=== PATIENT | male | born 1940 | race Caucasian/White ===

== ENCOUNTER 2016-06-19 12:07 | Inpatient (IN) | payer SELFPAY ==
[2016-06-19] VITALS (12 sets, daily range): BP systolic 119–145; BP diastolic 71–91; PULSE 64–84; RESP 16–18; TEMP 97.2–98.2; O2SAT 95–99
[~2016-06-19] VITALS: Ht 180.3 cm; Wt 89.9 kg
[2016-06-19] MEDS ORDERED: NITROGLYCERIN 0.4 MG SL 25 TABS/BTL SL STA (12:19)
[2016-06-19] MEDS ORDERED: SODIUM CHLOR 0.9% 1000 ML INJ 1,000 ML IV ONE (12:19)
[2016-06-19] MEDS ORDERED: HEPARIN SODIUM - IV 10,000 UNITS/10 ML VIAL IV STA (12:19)
--- NOTE | 2016-06-19 12:26 | PD ---
HPI Chief Complaint: Cardiac Complaint Time Seen by Provider: 12:17 Travel History International Travel<30 days: No Contact w/Intl Traveler<30days: No Traveled to known affect area: No History of Present Illness HPI 76yo M with PMH of CAD s/p bypass 20 years ago presents to the ED with c/o chest pain since 11:15am today. Pt was about to play golf when he started having left sided chest pain that radiates down left arm. +Nausea. Denies any sob, diaphoresis, vomiting, fever, cough, abdominal pain, focal weakness or numbness. Pt is from [place] and just arrived yesterday. Pt given aspirin 162mg and sublingual nitro by EVAC which helped a little. Still currently having chest pain. STEMI alert called by EVAC. [facility] Past Medical History Cardiac Catheterization: Yes Cardiovascular Problems: Yes High Cholesterol: Yes Hypertension: Yes Past Surgical History Coronary Artery Bypass Graft: Yes Other Surgery: Yes (HERNIA REPAIR) Social History Alcohol Use: No Tobacco Use: No Substance Use: No Allergies-Medications (Allergen,Severity, Reaction): Coded Allergies: No Known Allergies (Unverified , 06/19/16) Reported Meds & Prescriptions Reported Meds & Active Scripts Active Reported Vitamin D-3 (Cholecalciferol) 1,000 Unit Tab 1,000 Units PO DAILY Vitamin B-12 (Cyanocobalamin) 1,000 Mcg Tab 1,000 Mcg PO DAILY Valsartan 80 Mg Tab 80 Mg PO DAILY Lipitor (Atorvastatin Calcium) 40 Mg Tab 40 Mg PO HS Aspirin 81 Mg Chew 81 Mg CHEW DAILY Norvasc (Amlodipine Besylate) 5 Mg Tab 5 Mg PO DAILY Review of Systems Except as stated in HPI: all other systems reviewed are Neg Physical Exam Narrative GENERAL: 76yo M in moderate distress. SKIN: Focused skin assessment warm/dry. HEAD: Atraumatic. Normocephalic. EYES: Pupils equal and round. No scleral icterus. No injection or drainage. ENT: No nasal bleeding or discharge. Mucous membranes pink and moist. NECK: Trachea midline. No JVD. CARDIOVASCULAR: Regular rate and rhythm. No murmur appreciated. RESPIRATORY: No accessory muscle use. Clear to auscultation. Breath sounds equal bilaterally. GASTROINTESTINAL: Abdomen soft, non-tender, nondistended. No rebound tenderness or guarding. MUSCULOSKELETAL: No obvious deformities. No clubbing. No cyanosis. No edema. NEUROLOGICAL: Awake and alert. No obvious cranial nerve deficits. Motor grossly within normal limits. Normal speech. PSYCHIATRIC: Appropriate mood and affect; insight and judgment normal. Data Data Last Documented VS Vital Signs Date Time Temp Pulse Resp B/P Pulse Ox O2 Delivery O2 Flow Rate FiO2 06/19/16 12:18 99 2.00 06/19/16 12:18 Nasal Cannula 06/19/16 12:10 97.2 64 16 145/91 Orders Troponin I (06/19/16 12:19) Ckmb (Isoenzyme) Profile (06/19/16 12:19) Complete Blood Count With Diff (06/19/16 12:19) I-Stat Profile (06/19/16 12:19) I-Stat Creatinine (06/19/16 12:19) Calcium (06/19/16 12:19) Magnesium (Mg) (06/19/16 12:19) Prothrombin Time / Inr (Pt) (06/19/16 12:19) Act Partial Throm Time (Ptt) (06/19/16 12:19) Electrocardiogram (06/19/16 12:19) Oxygen Administration (06/19/16 12:19) Iv Access Insert/Monitor (06/19/16 12:19) Oximetry (06/19/16 12:19) Sodium Chlor 0.9% 1000 Ml Inj (Ns 1000 M (06/19/16 12:19) Sodium Chloride 0.9% Flush (Ns Flush) (06/19/16 12:30) Nitroglycerin Sl (Nitrostat Sl) (06/19/16 12:19) Heparin Inj (Heparin Inj) (06/19/16 12:19) Chest, Single Ap (06/19/16 ) Fentanyl Inj (Fentanyl Inj) (06/19/16 12:36) Midazolam Inj (Versed Inj) (06/19/16 12:36) Admit Order (Ed Use Only) (06/19/16 13:05) CKMB (06/19/16 12:15) CKMB% (06/19/16 12:15) Labs Laboratory Tests Test 06/19/16 12:15 White Blood Count 7.6 TH/MM3 Red Blood Count 6.27 MIL/MM3 Hemoglobin 15.1 GM/DL Bedside Hemoglobin 16.3 G/DL Hematocrit 47.0 % Bedside Hematocrit 48.0 % Mean Corpuscular Volume 75.0 FL Mean Corpuscular Hemoglobin 24.1 PG Mean Corpuscular Hemoglobin 32.2 % Concent Red Cell Distribution Width 15.9 % Platelet Count 221 TH/MM3 Mean Platelet Volume 8.9 FL Neutrophils (%) (Auto) 58.8 % Lymphocytes (%) (Auto) 28.3 % Monocytes (%) (Auto) 10.3 % Eosinophils (%) (Auto) 2.0 % Basophils (%) (Auto) 0.6 % Neutrophils # (Auto) 4.4 TH/MM3 Lymphocytes # (Auto) 2.1 TH/MM3 Monocytes # (Auto) 0.8 TH/MM3 Eosinophils # (Auto) 0.2 TH/MM3 Basophils # (Auto) 0.0 TH/MM3 CBC Comment AUTO DIFF Differential Comment AUTO DIFF CONFIRMED Platelet Estimate NORMAL Platelet Morphology Comment NORMAL Ovalocytes 2+ Prothrombin Time 10.8 SEC Prothromb Time International 1.0 RATIO Ratio Activated Partial 22.6 SEC Thromboplast Time Bedside Sodium 142 MMOL/L Bedside Potassium 5.1 MMOL/L Bedside Chloride 107 MMOL/L Bedside Blood Urea Nitrogen 29 MG/DL Bedside Creatinine 1.2 MG/DL Bedside Glucose 103 MG/DL Calcium Level 9.3 MG/DL Magnesium Level 2.3 MG/DL Total Creatine Kinase 172 U/L Creatine Kinase MB 1.4 NG/ML Troponin I LESS THAN 0.02 NG/ML MDM Medical Decision Making Medical Screen Exam Complete: Yes Emergency Medical Condition: Yes Differential Diagnosis STEMI Narrative Course 76yo M with typical chest pain here as stemi alert. Repeat EKG in the ED showed St segment elevation in II, III, aVF and ST depression in I, aVL, V2. Since ST segment in III is higher than II, posterior EKG obtained. V4 and V5 has 1mm ST segment elevation in posterior EKG. Discussed with Dr. Richmond and accepted to labor and delivery registered nurse. Pt was given heparin 5000mg IV in the ED. Pt has already been given aspirin and sublingual nitro x3 by EVAC. I accompanied pt to the labor and delivery registered nurse on electronic device monitor and was with the patient until Dr. Richmond arrived in the labor and delivery registered nurse. Critical Care Narrative Aggregate critical care time was 35 minutes. Time to perform other separately billable procedures was not included in the critical care time. My time did not include minutes spent treating any other patients simultaneously or on activities that did not directly contribute to the patient's treatment. The services I provided to this patient were to treat and/or prevent clinically significant deterioration that could result in: cardiovascular collapse or . I provided critical care services requiring my management, as noted below: Chart data review, documentation time, medication orders and management, vital sign assessments/reviewing monitor data, ordering and reviewing lab tests, ordering and interpreting/reviewing x-rays and diagnostic studies, care of the patient and discussion of the patient with the admitting physicians. Diagnosis Primary Impression: STEMI (ST elevation myocardial infarction) Qualified Code: I21.19 - ST elevation myocardial infarction (STEMI) involving other coronary artery of inferior wall Admitting Information Admitting Physician Requests: Cheryl Purvis DO Jun 19, 2016 12:26
[2016-06-19] MEDS ORDERED: SODIUM CHLORIDE 0.9% FLUSH 10 ML FLUSH IVF PRN (12:30)
--- NOTE | 2016-06-19 12:31 | RADRPT ---
EXAM DATE/TIME: 06/19/2016 12:16 [facility] COMPARISON: No previous studies available for comparison. INDICATIONS : Chest pain, stemi alert. MEDICAL HISTORY : None. SURGICAL HISTORY : CABG. ENCOUNTER: Initial ACUITY: 1 day PAIN SCORE: 10/10 LOCATION: Left upper chest FINDINGS: Mild motion degradation in the left lower chest. A single view of the chest demonstrates the lungs t o be symmetrically aerated without evidence of mass, infiltrate or effusion. The cardiomediastinal c ontours are unremarkable. Both hemidiaphragms are well delineated. Osseous structures are intact. Prior median sternotomy with intact sternal wire sutures. CONCLUSION: No definite infiltrate seen. Candido Zuleta MD on June 19, 2016 at 12:28 Board Certified Radiologist. This report was verified electronically.
[2016-06-19] MEDS ORDERED: MIDAZOLAM HCL 5 MG/5 ML VIAL ONE (12:36)
[2016-06-19 12:42] LABS: AUTOMATED NEUTROPHIL # 4.4 TH/MM3 (1.8-7.7); BASOPHIL % 0.6 % (0.0-2.0); EOSINOPHIL # 0.2 TH/MM3 (0-0.4); LYMPH % 28.3 % (9.0-44.0); LYMPHOCYTE # 2.1 TH/MM3 (1.0-4.8); MEAN CORPUSCULAR HEMOGLOBIN 24.1 PG (27.0-34.0); MEAN CORPUSCULAR HGB CONC 32.2 % (32.0-36.0); MONO % 10.3 % (0.0-8.0); NEUT % 58.8 % (16.0-70.0); PLATELET COUNT 221 TH/MM3 (150-450); RED BLOOD COUNT 6.27 MIL/MM3 (4.50-5.90); RED CELL DISTRIBUTION WIDTH 15.9 % (11.6-17.2); WHITE BLOOD COUNT 7.6 TH/MM3 (4.0-11.0)
[2016-06-19 12:43] LABS: HEMO FLAGS AUTO DIFF
[2016-06-19 12:46] LABS: I-STAT POTASSIUM 5.1 MMOL/L (3.5-4.9); I-STAT SODIUM 142 MMOL/L (138-146)
[2016-06-19 12:50] LABS: APTT (PATIENT) 22.6 SEC (24.3-30.1); PROTHROMBIN TIME - PATIENT 10.8 SEC (9.8-11.6)
[2016-06-19] MEDS ORDERED: MIDAZOLAM HCL 2 MG/2 ML VIAL IV ONE ×3 (12:50→13:48)
[2016-06-19] MEDS ORDERED: HEPARIN SODIUM - IV 10,000 UNITS/10 ML VIAL ONE (13:00)
[2016-06-19] MEDS ORDERED: HEPARIN SODIUM - IV 10,000 UNITS/10 ML VIAL IV ONE ×2 (13:05→13:15)
[2016-06-19 13:10] LABS: CREATINE KINASE 172 U/L (39-308); MAGNESIUM 2.3 MG/DL (1.5-2.5)
[2016-06-19 13:17] LABS: OVALOCYTES 2+ (NORMAL)
[2016-06-19 13:19] LABS: PLATELET ESTIMATE SMEAR NORMAL (NORMAL); PLATELET MORPHOLOGY NORMAL (NORMAL); SCAN/DIFF AUTO DIFF CONFIRMED
[2016-06-19 13:23] LABS: CKMB 1.4 NG/ML (0.5-3.6)
[2016-06-19] MEDS ORDERED: TIROFIBAN INFUSION INJ 250 ML IV ONE (13:26)
[2016-06-19] MEDS ORDERED: PRASUGREL 10 MG TAB ONE (13:29)
[2016-06-19] MEDS ORDERED: PRASUGREL 10 MG TAB PO ONE (13:40)
[2016-06-19] MEDS ORDERED: ASPIRIN 81 MG CHEW TAB PO ONE (13:58)
[2016-06-19] MEDS ORDERED: ASPIRIN 81 MG CHEW TAB ONE (13:58)
[2016-06-19] MEDS ORDERED: IOHEXOL 350 MG/ML 100 ML BTL (for Cath Lab) OTHER ONE (14:48)
[2016-06-19] MEDS ORDERED: LIPI40TA PO (14:56)
[2016-06-19] MEDS ORDERED: AMLO5 PO (14:56)
[2016-06-19] MEDS ORDERED: VALS1TAB64 PO (14:56)
[2016-06-19] MEDS ORDERED: ASPI81CH CHEW (14:56)
[2016-06-19] MEDS ORDERED: VITA10002 PO (14:56)
[2016-06-19] MEDS ORDERED: VITA10003 PO (14:56)
[2016-06-19] MEDS ORDERED: SODIUM CHLOR 0.9% 1000 ML INJ 1,000 ML IV SCH (16:02)
[2016-06-19] MEDS ORDERED: TEMAZEPAM 15 MG CAP PO PRN (16:15)
[2016-06-19] MEDS ORDERED: ACETAMINOPHEN 325 MG TAB PO PRN (16:15)
--- NOTE | 2016-06-19 16:55 | MB ---
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 He was about to play golf this morning and started having left-sided chest pain radiating down the left arm associated with nausea. The patient is here on vacation from [place]. He was diagnosed with acute inferior myocardial infarction and was referred for emergent cardiac catheterization. He has ongoing 810 substernal chest discomfort. PAST MEDICAL HISTORY Positive for - 1. Hypertension. 2. Dyslipidemia. 3. Four-vessel bypass 20 years ago. 4. No history of diabetes mellitus or CVA. MEDICATIONS See chart. ALLERGIES NONE. SOCIAL HISTORY The patient does not smoke. He does not drink alcohol. FAMILY HISTORY Negative for heart disease. REVIEW OF SYSTEMS Otherwise negative. PHYSICAL EXAMINATION VITAL SIGNS: Blood pressure 145/91, pulse 64 and regular. HEAD, EYES, EARS, NOSE, AND THROAT: Negative. NECK: 2+ carotid upstrokes. No bruits. LUNGS: Clear. HEART: Regular with no murmur, gallop or rub. ABDOMEN: Soft. No bruits. EXTREMITIES: Without edema. 2+ positive pulses. NEUROLOGIC: Exam is grossly nonfocal. EKG was reviewed and showed atrial fibrillation, right axis, inferior ST elevations with anterolateral reciprocal ST depressions. LABORATORY DATA Hemoglobin 15.1, potassium 5.1, creatinine 1.2, CK 172, troponin less than 0.02. DIAGNOSES 1. Acute inferior wall myocardial infarction. 2. Coronary artery disease. 3. Four-vessel coronary artery bypass. 4. Hypertension. 5. Dyslipidemia. DISPOSITION Mr. Gordon will undergo emergent cardiac catheterization and coronary intervention if necessary. He understands the risks and benefits and wishes to proceed. MD BING Hicks/MARK /2:08 PM /4:36 PM MTDWilber
[2016-06-19] MEDS ORDERED: ATORVASTATIN 10 MG TAB PO SCH (21:00)
[2016-06-19] MEDS: CARVEDILOL 3.125 MG TAB PO SCH (21:26)
[2016-06-20] VITALS (15 sets, daily range): BP systolic 134–145; BP diastolic 77–83; PULSE 60–75; RESP 16–18; TEMP 97.9–98.5; O2SAT 97–98
[2016-06-20] MEDS: TIROFIBAN INFUSION 12.5 MG/NS 250 ML IV SCH ×2 (02:15→17:41)
[2016-06-20 07:04] LABS: AUTOMATED NEUTROPHIL # 8.8 TH/MM3 (1.8-7.7); BASOPHIL # 0.1 TH/MM3 (0-0.2); BASOPHIL % 0.5 % (0.0-2.0); EOSINOPHIL # 0.1 TH/MM3 (0-0.4); HEMATOCRIT 42.1 % (39.0-51.0); LYMPH % 11.7 % (9.0-44.0); LYMPHOCYTE # 1.3 TH/MM3 (1.0-4.8); MEAN CELL VOLUME 76.1 FL (80.0-100.0); MEAN CORPUSCULAR HEMOGLOBIN 24.3 PG (27.0-34.0); MEAN CORPUSCULAR HGB CONC 31.9 % (32.0-36.0); MONO % 9.8 % (0.0-8.0); PLATELET COUNT 247 TH/MM3 (150-450); RED BLOOD COUNT 5.54 MIL/MM3 (4.50-5.90); RED CELL DISTRIBUTION WIDTH 15.9 % (11.6-17.2); WHITE BLOOD COUNT 11.4 TH/MM3 (4.0-11.0)
[2016-06-20 07:10] LABS: HEMO FLAGS AUTO DIFF
[2016-06-20 07:29] LABS: BICARBONATE 24.2 MEQ/L (21.0-32.0); HDL CHOLESTEROL 32.9 MG/DL (40.0-60.0); POTASSIUM 3.6 MEQ/L (3.5-5.1)
[2016-06-20 07:43] LABS: CKMB 183.2 NG/ML (0.5-3.6)
[2016-06-20 07:53] LABS: KERATOCYTES OCC (NORMAL); OVALOCYTES 2+ (NORMAL); PLATELET ESTIMATE SMEAR NORMAL (NORMAL); PLATELET MORPHOLOGY NORMAL (NORMAL); SCAN/DIFF AUTO DIFF CONFIRMED
[2016-06-20] MEDS: CARVEDILOL 3.125 MG TAB PO SCH (08:03)
[2016-06-20] MEDS ORDERED: PRASUGREL 10 MG TAB PO SCH (09:00)
[2016-06-20] MEDS ORDERED: VALSARTAN 80 MG TAB PO SCH (09:00)
[2016-06-20] MEDS ORDERED: ASPIRIN 81 MG CHEW TAB CHEW SCH (09:00)
--- NOTE | 2016-06-20 13:57 | EKG ---
Date Performed: 06/19/2016 Time Performed: 12:17:12 PTAGE: 76 years EKG: ATRIAL FIBRILLATION WITH ABERRANT CONDUCTION OR VENTRICULAR PREMATURE COMPLEXES BORDERLINE RIGHT AXIS DEVIATION ST ELEVATION, CONSIDER INFERIOR INJURY ACUTE [place] Compared to prior tracing no significant change DOCTOR: Aiden Baez Interpretating Date/Time 06/20/2016 13:56:47
--- NOTE | 2016-06-20 13:57 | EKG ---
Date Performed: 06/19/2016 Time Performed: 12:13:40 PTAGE: 76 years EKG: Atrial fibrillation with slow ventricular response ST segment elevation is present inferior ly, consistent with acute inferior PR. Clinical correlation is recommended NO PREVIOUS TRACING DOCTOR: Aiden Baez Interpretating Date/Time 06/20/2016 13:56:24
[2016-06-20] MEDS ORDERED: PRAS10TA PO (17:36)
[2016-06-20] MEDS ORDERED: CARV6.252 PO (18:02)
--- NOTE | 2016-06-20 18:21 | PD.CARD.PN ---
Subjective Subjective Remarks No CP or SOB, mild groin bleeding now resolved Objective Medications Current Medications Medications (Trade) Dose Ordered Sig/Mitra Route Start Time Stop Time Status Last Admin (NS Flush) 2 ml UNSCH PRN IVF 06/19/16 12:30 (Aspirin Chew) 81 mg DAILY CHEW 06/20/16 09:00 06/20/16 08:03 (Diovan) 80 mg DAILY PO 06/20/16 09:00 06/20/16 08:02 (Tylenol) 325 mg Q4H PRN PO 06/19/16 16:15 (Restoril) 15 mg HS PRN PO 06/19/16 16:15 (Effient) 10 mg DAILY PO 06/20/16 09:00 06/20/16 08:03 (Coreg) 3.125 mg BID PO 06/19/16 21:00 06/20/16 08:03 Atorvastatin Calcium 80 mg 80 mg HS PO 06/19/16 21:00 06/19/16 21:26 (Aggrastat Infusion Inj) 250 ml @ 16.2 mls/hr [id number] IV 06/20/16 02:15 06/20/16 02:15 Vital Signs / I&O Vital Signs Date Time Temp Pulse Resp B/P Pulse Ox O2 Delivery O2 Flow Rate FiO2 06/20/16 16:00 75 06/20/16 16:00 98.5 71 18 143/79 98 06/20/16 15:00 68 06/20/16 12:00 98.1 63 18 136/77 97 06/20/16 12:00 66 06/20/16 11:00 60 06/20/16 10:00 64 06/20/16 09:00 70 06/20/16 08:00 98.2 66 16 145/83 97 06/20/16 08:00 75 06/20/16 07:00 74 06/20/16 06:00 74 06/20/16 05:00 70 06/20/16 04:00 69 06/20/16 03:00 97.9 72 18 134/77 98 06/20/16 03:00 62 06/20/16 02:00 66 06/20/16 01:00 60 06/20/16 00:00 62 06/19/16 23:00 98.2 71 16 127/75 97 06/19/16 23:00 72 06/19/16 22:00 74 06/19/16 21:00 78 06/19/16 20:00 74 06/19/16 19:00 77 06/19/16 19:00 98.2 73 18 138/77 96 I/O 06/19/16 06/19/16 06/19/16 06/20/16 06/20/16 06/20/16 07:00 15:00 23:00 07:00 15:00 23:00 Intake Total 580 ml 869 ml 480 ml Output Total 800 ml 1815 ml 1062 ml Balance -220 ml -946 ml -582 ml Intake Oral 480 ml 480 ml 480 ml IV Total 100 ml 389 ml Output Urine Total 800 ml 1815 ml 1062 ml # Bowel Movements 0 1 Physical Exam GENERAL: In NAD SKIN: Warm and dry. HEAD: Normocephalic. EYES: No scleral icterus. No injection or drainage. NECK: Supple, trachea midline. No JVD or lymphadenopathy. CARDIOVASCULAR: Regular rate and rhythm without murmurs, gallops, or rubs. RESPIRATORY: Breath sounds equal bilaterally. No accessory muscle use. GASTROINTESTINAL: Abdomen soft, non-tender, nondistended. MUSCULOSKELETAL: No cyanosis, or edema. Groin stable Laboratory Laboratory Tests Test 06/20/16 05:15 White Blood Count 11.4 TH/MM3 Red Blood Count 5.54 MIL/MM3 Hemoglobin 13.5 GM/DL Hematocrit 42.1 % Mean Corpuscular Volume 76.1 FL Mean Corpuscular Hemoglobin 24.3 PG Mean Corpuscular Hemoglobin 31.9 % Concent Red Cell Distribution Width 15.9 % Platelet Count 247 TH/MM3 Mean Platelet Volume 8.5 FL Neutrophils (%) (Auto) 77.0 % Lymphocytes (%) (Auto) 11.7 % Monocytes (%) (Auto) 9.8 % Eosinophils (%) (Auto) 1.0 % Basophils (%) (Auto) 0.5 % Neutrophils # (Auto) 8.8 TH/MM3 Lymphocytes # (Auto) 1.3 TH/MM3 Monocytes # (Auto) 1.1 TH/MM3 Eosinophils # (Auto) 0.1 TH/MM3 Basophils # (Auto) 0.1 TH/MM3 CBC Comment AUTO DIFF Differential Comment AUTO DIFF CONFIRMED Platelet Estimate NORMAL Platelet Morphology Comment NORMAL Ovalocytes 2+ Keratocytes OCC Sodium Level 140 MEQ/L Potassium Level 3.6 MEQ/L Chloride Level 108 MEQ/L Carbon Dioxide Level 24.2 MEQ/L Anion Gap 8 MEQ/L Blood Urea Nitrogen 13 MG/DL Creatinine 1.10 MG/DL Estimat Glomerular Filtration 65 ML/MIN Rate Random Glucose 99 MG/DL Calcium Level 8.7 MG/DL Total Creatine Kinase 1832 U/L Creatine Kinase MB 183.2 NG/ML Creatine Kinase MB % 10.0 % Triglycerides Level 91 MG/DL Cholesterol Level 97 MG/DL LDL Cholesterol 46 MG/DL HDL Cholesterol 32.9 MG/DL Cholesterol/HDL Ratio 2.94 RATIO Imaging Last Impressions Chest X-Ray 06/19/16 0000 Signed Impressions: Service Date/Time: Sunday, June 19, 2016 12:16 - CONCLUSION: No definite infiltrate seen. Candido Zuleta MD Assessment and Plan Problem List: (1) STEMI (ST elevation myocardial infarction) (2) CAD (coronary artery disease) (3) S/P CABG x 4 (4) HTN (hypertension) (5) Dyslipidemia Assessment and Plan No recurrent CP. Groin stable. Continue Effient, ASA, statin, carvedilol and valsartan. DC home. F/u w me within 2 weeks. Referred to cardiac rehab. Problem Qualifiers (1) STEMI (ST elevation myocardial infarction): Qualified Code: I21.19 - ST elevation myocardial infarction (STEMI) involving other coronary artery of inferior wall Kimberly Richmond MD Jun 20, 2016 18:21
--- NOTE | 2016-06-20 18:22 | HHI.DCPOC ---
Discharge Care Plan Diagnosis: (1) STEMI (ST elevation myocardial infarction) (2) CAD (coronary artery disease) (3) S/P CABG x 4 (4) HTN (hypertension) (5) Dyslipidemia Goals to Promote Your Health * To prevent worsening of your condition and complications * To maintain your health at the optimal level Directions to Meet Your Goals Take your medications as prescribed Follow your dietary instruction Follow activity as directed Keep your appointments as scheduled Take your immunizations and boosters as scheduled If your symptoms worsen call your PCP, if no PCP go to Urgent Care Center or Emergency Room Smoking is Dangerous to Your Health. Avoid second hand smoke Call the 24-hour hour crisis hotline for domestic abuse at Kimberly Richmond MD Jun 20, 2016 18:22
--- NOTE | 2016-06-21 08:37 | MA ---
cc: DEEPAK WATKINS DATE 06/19/2016 INDICATIONS Acute inferior wall myocardial infarction. Coronary artery disease, history of coronary bypass. This procedure is emergent. PROCEDURE PERFORMED 1. Retrograde left heart catheterization with left ventriculography and selective coronary angiography 2. Saphenous venous graft angiography 3. Left and right internal mammary artery angiography 4. Thrombectomy of saphenous venous graft to the right coronary artery 5. Thoracic aortogram including aortic root, ascending thoracic aorta, aortic arch and descending thoracic aorta. 6. Moderate sedation. ACCESS SITE Right femoral artery EQUIPMENT USED 5 Persian pigtail catheter, 5 Persian JL4 and AR modified coronary artery catheters, left internal mammary artery catheter, multipurpose guide, BMW wire, [place] thrombectomy catheter. MEDICATIONS Versed IV, Fentanyl IV, heparin IV, Tirofiban IV bolus and drip, aspirin 160 mg p.o., Effient 60 mg p.o. IV CONTRAST Omnipaque 170 cc COMPLICATIONS None BLOOD LOSS Less than 8 cc METHOD OF HEMOSTASIS Angio-Seal closure RESULTS HEMODYNAMICS Heart rate 50 beats per minute Left ventricular end-diastolic pressure 40 mmHg Left ventricle 110/14 Aorta 110/60/82 LEFT VENTRICULOGRAPHY Ejection fraction 45%. Wall motion inferoposterior hypokinesis. No mitral regurgitation. Thoracic artery showed no significant arterial insufficiency. Saphenous venous graft pink. CORONARY ANGIOGRAPHY Left main coronary artery is patent. Left anterior descending artery is totally occluded in the proximal portion. The first diagonal artery has 90% stenosis in the proximal portion and 70% in the mid portion. Ramus intermedius is patent. Left circumflex artery is totally occluded in the mid portion. Right coronary artery is totally occluded in the proximal portion. The posterior descending coronary artery has 30% ostial stenosis. The posterior LV branch of the right coronary artery has 40% stenosis at the ostium and is totally occluded in the mid-distal portion. Right internal mammary artery is atretic. Left internal mammary artery graft to the left anterior descending artery is patent. Saphenous venous graft to the first obtuse marginal artery is patent. Saphenous venous graft to the distal right coronary artery is totally occluded with a large amount of thrombus. The stenosis in the saphenous venous graft to the distal right coronary artery was 15 mm long, MITZI flow 0, post-MITZI flow 3, post-stenosis 0. POST INTERVENTION ANGIOGRAPHY Revealed excellent patency of the occluded mid segment of the graft and no evidence of dissection or distal embolization. DIAGNOSIS 1. Acute inferior wall myocardial infarction. 2. Coronary artery disease with total occlusion of the saphenous venous graft to the right coronary artery. 3. Successful thrombectomy of the saphenous venous graft to the right coronary artery. 4. Mild left ventricular dysfunction, consistent with ischemic cardiomyopathy. DISPOSITION Mr. Gordon will be monitored on telemetry after the procedure. We will continue long-term therapy with Effient and aspirin. We will continue and intensify aggressive modification of his cardiac risk factors. He had an episode of atrial fibrillation, but at this time I recommend to stay off full anticoagulation, since aggressive platelet inhibition including Effient and ASA is necessary due to a large amount of thrombus in the venous graft. After at least one month therapy, the patient can be switched to a dual therapy with Eliquis and a novel anticoagulant. 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 MD BING Hicks/DONITA /2:03 PM /8:17 AM MARIAM
== END 2016-06-20 18:52 | disposition home or self-care (01) | DRG 229 ==
LOC: NEPE 12:07 → NEDA 13:06 → HCIS 14:03
PROVIDERS: ADMIT Internal Medicine Interventional Cardiology; ATTEND Internal Medicine Interventional Cardiology
PROC: 02C00ZZ Extirpation of Matter from Coronary Artery, One Artery, Open Approach (ICD-10-PCS; principal; 2016-06-19)
PROC: 4A023N7 Measurement of Cardiac Sampling and Pressure, Left Heart, Percutaneous Approach (ICD-10-PCS; 2016-06-19)
PROC: B2111ZZ Fluoroscopy of Multiple Coronary Arteries using Low Osmolar Contrast (ICD-10-PCS; 2016-06-19)
PROC: B2131ZZ Fluoroscopy of Multiple Coronary Artery Bypass Grafts using Low Osmolar Contrast (ICD-10-PCS; 2016-06-19)
PROC: B2151ZZ Fluoroscopy of Left Heart using Low Osmolar Contrast (ICD-10-PCS; 2016-06-19)
PROC: B2181ZZ Fluoroscopy of Left Internal Mammary Bypass Graft using Low Osmolar Contrast (ICD-10-PCS; 2016-06-19)
PROC: B2171ZZ Fluoroscopy of Right Internal Mammary Bypass Graft using Low Osmolar Contrast (ICD-10-PCS; 2016-06-19)
PROC: B3101ZZ Fluoroscopy of Thoracic Aorta using Low Osmolar Contrast (ICD-10-PCS; 2016-06-19)
DX: I21.19 ST elevation (STEMI) myocardial infarction involving other coronary artery of inferior wall (principal); I25.719 Atherosclerosis of autologous vein coronary artery bypass graft(s) with unspecified angina pectoris; I48.91 Unspecified atrial fibrillation; I25.119 Atherosclerotic heart disease of native coronary artery with unspecified angina pectoris; I10 Essential (primary) hypertension; Z95.1 Presence of aortocoronary bypass graft; E78.00 Pure hypercholesterolemia, unspecified; E78.5 Hyperlipidemia, unspecified; I25.5 Ischemic cardiomyopathy
CPT/HCPCS: 71010; 80048; 80061; 82310; 82435; 82550; 82552; 82565; 82947; 83735; 84132; 84295; 84484; 84520; 85025; 85610; 85730; 93005; 93458; 93567; 96374; 96375; 96376; C1757; C1760; C1769; C1887; C1893; G0269; J1644; J2250; J3010; J3246; J7030; Q9967